=== PATIENT | female | born 1960 | race Caucasian/White ===

== ENCOUNTER 2016-12-18 09:02 | Day surgery (SDC) | payer BC ==
--- NOTE | ~2016-12-18 | EGD ---
EGD REPORT [facility] [address] [address] NAME: MARIA L LIGHT : [birth year] [place] [facility] [place] [id number] AGE: 56 ADM/REG DATE : 12/18/16 MR#: [id number] REPORT SERV DATE: 12/18/16 DICTATED BY: DOMINIC JAMES DATE: 12/18/16 REPORT STATUS : Draft TRANSCRIBED BY: [facility] DATE: 12/18/16 Endoscopy Center Patient Name: Maria L Light Date of : 1960 Attending MD: DOMINIC JAMES MD Procedure Date No Time: 12/18/2016 Procedure: Colonoscopy Indications: High risk colon cancer surveillance: Personal history of colonic polyps Referring MD: SIVA JULIAN MD Medicines: as per anesthesia Complications: No immediate complications. Procedure: Pre-Anesthesia Assessment: - ASA Grade Assessment: III - A patient with severe systemic disease. After I obtained informed consent, the scope was passed under direct vision. Throughout the procedure, the patient's blood pressure, pulse, and oxygen saturations were monitored continuously. The PCF [id number] was introduced through the anus and advanced to the cecum, identified by appendiceal orifice and ileocecal valve. The colonoscopy was performed without difficulty. The patient tolerated the procedure. The quality of the bowel preparation was adequate to identify polyps. Findings: The perianal and digital rectal examinations were normal. Internal hemorrhoids were found during endoscopy and were mild. Impression: - Internal hemorrhoids. Recommendation: - Repeat colonoscopy in 5 years for surveillance. Procedure Code(s): --- Professional --- 22620, Colonoscopy, flexible, proximal to splenic flexure; diagnostic, with or without collection of specimen(s) by brushing or washing, with or without colon decompression (separate procedure) Diagnosis Code(s): --- Professional --- K64.8, Other hemorrhoids Z86.010, Personal history of colonic polyps CPT copyright 2013 [employer]. All rights reserved. EGD REPORT [facility] [address] [id number] NAME: MARIA L LIGHT : [birth year] [place] [facility] [place] [id number] AGE: 56 ADM/REG DATE : 12/18/16 MR#: [id number] REPORT SERV DATE: 12/18/16 DICTATED BY: DOMINIC JAMES. DATE: 12/18/16 REPORT STATUS : Draft TRANSCRIBED BY: [employer] DATE: 12/18/16 The codes documented in this report are preliminary and upon transmitter chief review may be revised to meet current compliance requirements. DOMINIC JAMES MD 12/18/2016 11:12 AM This report has been signed electronically. Number of Addenda: 0 Note Initiated On: 12/18/2016 10:33 AM Scope Withdrawal Time 0 hours 6 minutes 1 second [id number] [facility] [place] [id number]
--- NOTE | ~2016-12-18 | EGD ---
EGD REPORT [facility] [address] [address] NAME: MARIA L LIGHT : [birth year] STATUS : REG [facility] [place] PAT#: [id number] AGE: 56 ADM/REG DATE : 12/18/16 MR#: [id number] REPORT SERV DATE: 12/18/16 DICTATED BY: DOMINIC JAMES DATE: 12/18/16 REPORT STATUS : Draft [facility]ANSCRIBED BY: [facility] DATE: 12/18/16 Endoscopy Center Patient Name: Maria L Light Date of : 1960 Attending MD: DOMINIC JAMES MD Procedure Date No Time: 12/18/2016 Procedure: Upper GI endoscopy Indications: Epigastric abdominal pain, Heartburn, Suspected esophageal reflux Referring MD: SIVA JULIAN MD Medicines: as per anesthesia Complications: No immediate complications. Procedure: Pre-Anesthesia Assessment: - ASA Grade Assessment: III - A patient with severe systemic disease. After obtaining informed consent, the endoscope was passed under direct vision. Throughout the procedure, the patient's blood pressure, pulse, and oxygen saturations were monitored continuously. The GIF [id number] was introduced through the mouth, and advanced to the third part of duodenum. The upper GI endoscopy was accomplished without difficulty. The patient tolerated the procedure. Findings: The examined esophagus was normal. Localized mild inflammation characterized by erythema was found in the gastric antrum. Biopsies were taken with a cold forceps for histology. The cardia and gastric fundus were normal on retroflexion. Localized mild inflammation characterized by erythema was found in the duodenal bulb. Impression: - Normal esophagus. - Gastritis. Biopsied. - Duodenitis. Recommendation: - Await pathology results. - Follow an antireflux regimen. - Continue present medications. Procedure Code(s): --- Professional --- 29470, Esophagogastroduodenoscopy, flexible, transoral; with biopsy, single or multiple Diagnosis Code(s): --- Professional --- EGD REPORT [address] [facility] [place] [id number] NAME: MARIA L LIGHT : [birth year] STATUS : REG [facility] [place] PAT#: [id number] AGE: 56 ADM/REG DATE : 12/18/16 MR#: [id number] REPORT SERV DATE: 12/18/16 DICTATED BY: DOMINIC JAMES. DATE: 12/18/16 REPORT STATUS : Draft TRANSCRIBED BY: [employer] DATE: 12/18/16 K29.70, Gastritis, unspecified, without bleeding K29.80, Duodenitis without bleeding R10.13, Epigastric pain R12, Heartburn CPT copyright 2013 [employer]. All rights reserved. The codes documented in this report are preliminary and upon heater engineer helper review may be revised to meet current compliance requirements. DOMINIC JAMES MD 12/18/2016 10:56 AM This report has been signed electronically. Number of Addenda: 0 Note Initiated On: 12/18/2016 10:36 AM Scope Withdrawal Time 0 hours 0 minutes [address] [place] [address] [place] [id number]
[~2016-12-18 09:02] MED LIST: BC HEADACHE PO; BEN25 PO; I40 PO; IMITREX50 PO; PROMETRIUM PO; PROTONIX PO; SUDAFED PO; SYN1 PO
== END 2016-12-18 23:59 | disposition home or self-care (01) ==
LOC: DMU 09:02
PROVIDERS: Internal Medicine Gastroenterology
PROC: 0DJD8ZZ Inspection of Lower Intestinal Tract, Via Natural or Artificial Opening Endoscopic (ICD-10-PCS; principal; 2016-12-18 10:30)
PROC: 0DB68ZZ Excision of Stomach, Via Natural or Artificial Opening Endoscopic (ICD-10-PCS; 2016-12-18 10:30)
DX: Z12.11 Encounter for screening for malignant neoplasm of colon (principal); K64.8 Other hemorrhoids; Z86.010 Personal history of colon polyps; K29.70 Gastritis, unspecified, without bleeding; K29.80 Duodenitis without bleeding; R10.13 Epigastric pain; R12 Heartburn; G43.909 Migraine, unspecified, not intractable, without status migrainosus; K21.9 Gastro-esophageal reflux disease without esophagitis; E03.9 Hypothyroidism, unspecified
CPT/HCPCS: 88305